=== PATIENT | female | born 2000 | race American Indian/Alaskan Native ===

== ENCOUNTER 2019-04-08 13:29 | Emergency (ER) | payer OTHER ==
[2019-04-08 13:38] VITALS: BP 123/59
--- NOTE | 2019-04-08 13:44 | Emergency Department Report ---
Blank Doc - Documentation Documentation: 18 y/o female presents to ed c/o 2 weeks of coryza and nausea Plan UA/UPT <MELVA GOMES - Last Filed: 04/08/19 13:42> - Documentation Documentation: A physician and/or other qualified medical personnel has recommended that the patient receive further examination and/or treatment beyond their Medical Screening Exam. The risks and benefits were explained. The patient was informed of their right to emergency care. Patient left before final disposition of their medical condition. This note has been generated by me, Dr. Nj Waldron III, MD, the Technical Communicator for the emergency department. I have not seen this patient personally. <NJ WALDRON - Last Filed: 04/15/19 08:27>
[2019-04-08 15:54] LABS: Bilirubin,Urine NEG (Negative); Blood,Urine NEG (Negative); Color,Urine Yellow (Yellow); Mucus,Urine 1+ /HPF; Protein,Urine <15 mg/dL mg/dL (Negative); Urobilinogen,Urine < 2.0 mg/dL (<2.0); WBC,Urine < 1.0 /HPF (0.0-6.0)
[2019-04-08 15:56] LABS: HCG Qualitative,Urine Negative (Negative)
== END 2019-04-08 18:05 | disposition left against medical advice (07) ==
LOC: ED 13:29
DX: R50.9 Fever, unspecified (principal); R51 Headache; M79.10 Myalgia, unspecified site
CPT/HCPCS: 81001; 81025; 99283